=== PATIENT | female | born 1960 | race Caucasian/White ===

== ENCOUNTER → 2016-04-26 | Day surgery (SDC) | payer OTHER ==
[~2016-04-26] VITALS: Ht 154.9 cm; Wt 83.5 kg
[~2016-04-26] MED LIST: CALC500T49 PO; CODE30TA3 PO; KETOROLAC 60 MG/2 ML VIAL (J1885) As Ordered ONE; LIDOCAINE 1% MDV 20ML VIAL As Ordered ONE; LIDOCAINE 2% INJ 100 MG/5 ML SDV (FOR ANES.) As Ordered ONE; LR 1,000 ML IV SCH; METOCLOPRAMIDE INJ 10MG/2ML VIAL (J2765) As Ordered ONE; MIDAZOLAM INJ 2 MG/2 ML VIAL (J2250) As Ordered ONE; MULT1TAB10 PO; ONDANSETRON 4MG/2ML VIAL (J2405) As Ordered ONE; ONDANSETRON 4MG/2ML VIAL (J2405) IV PRN; PROPOFOL 200 MG/20 ML VIAL As Ordered ONE; ROCURONIUM BROMIDE 50 MG/5 ML VIAL As Ordered ONE; SUCCINYLCHOLINE 100 MG/5 ML SYRINGE (J0330) As Ordered ONE; VITA100037 PO; VITA500T3 PO; ZYRT10CA PO; fentaNYL 100 MCG/2 ML INJECTION (J3010) As Ordered ONE; fentaNYL 100 MCG/2 ML INJECTION (J3010) IV PRN
[2016-04-26 09:25] LABS: MEAN CORPUSCULAR HEMOGLOBIN 28.1 pg (27.0-33.0); MEAN CORPUSCULAR HGB CONC 32.3 g/dl (32.0-36.5); MEAN CORPUSCULAR VOLUME 87.1 fl (80.0-96.0); RED CELL DISTRIBUTION WIDTH 12.5 % (11.5-14.5)
[2016-04-26 09:33] LABS: ANION GAP 6 MEQ/L (8-16); BLOOD UREA NITROGEN 22 MG/DL (7-18); CALCIUM LEVEL 9.4 MG/DL (8.5-10.1); CARBON DIOXIDE LEVEL 31 MEQ/L (21-32); CHLORIDE LEVEL 103 MEQ/L (98-107); CREATININE FOR GFR 0.86 MG/DL (0.55-1.02); GLOMERULAR FILTRATION RATE > 60.0 (>51); GLUCOSE, FASTING 94 MG/DL (70-105); POTASSIUM SERUM 4.7 MEQ/L (3.5-5.1); SODIUM LEVEL 140 MEQ/L (136-145)
[2016-04-26 13:15] VITALS: BP 155/79
--- NOTE | 2016-04-27 12:39 | RO ---
DATE OF PROCEDURE: 04/26/2016 PREOPERATIVE DIAGNOSIS: Postmenopausal bleeding. POSTOPERATIVE DIAGNOSES: 1. Postmenopausal bleeding. 2. Endometrial polyps. PROCEDURE: Operative hysteroscopy, polypectomy, and dilation and curettage (D and C). SURGEON: Hesham Oglesby DO STEAM POWER PLANT OPERATOR: None. ANESTHESIA TYPE: General via laryngeal mask airway (LMA) anesthesia. SPECIMENS SENT TO PATHOLOGY: 1. Fragments of endometrial polyps. 2. Endometrial curettings. ESTIMATED BLOOD LOSS: 5 mL. FLUIDS REPLACED: 1100 mL lactated Ringer. DRAINS: In-and-out catheter, 20 mL urine output. COMPLICATIONS: None. PREOPERATIVE ANTIBIOTICS: None indicated. INTRAOPERATIVE FINDINGS: Left and right endometrial polyps, both near the ostium of the fallopian tube, each approximately less than 1 cm in greatest dimension. Both of these polyps were removed in fragments by twisting off the fragments with polyp graspers. DESCRIPTION OF PROCEDURE: The patient was counseled and consented on the risks, benefits, indications, and alternatives of the procedure. Informed consent was obtained. She was taken to the operating room with an IV running and placed on the operating table in the dorsal supine position. General anesthesia was administered and secured without any difficulty. She was placed in the high lithotomy position. She was prepared and draped in the normal sterile fashion. A time-out was performed per protocol. The sterile catheter was placed to drain the bladder. This was removed. The sterile speculum was placed with great visualization of the cervix. The anterior lip of the cervix was grasped with a single-tooth tenaculum, and downward traction was applied. The cervix was then sequentially dilated with Aubrey dilators up to a #18 without any difficulty. The uterus sounded to 8 cm. The hysteroscope was placed transcervically into the intrauterine cavity. Instillation of normal saline revealed two endometrial polyps. The largest was on the patient's left side and was right near the tubal ostium. This polypoid mass was grasped with hysteroscopic polyp graspers; and in fragments, this mass was removed. The fragments of polyp were sent to pathology for permanent section. In similar fashion, the polyp on the right side was grasped and twisted and removed in fragments with the hysteroscopic polyp graspers. The sites of the polypectomy were noted to be hemostatic. The hysteroscope was removed. A sharp curette was placed transcervically into the intrauterine cavity. A sharp curettage was performed throughout the intrauterine cavity and with minimal tissue return, which was consistent with the overall atrophic appearance of the endometrium. Other than the polyps, no fronds of tissue were visualized. Furnace Tender images were placed in the chart. The curettings were sent to pathology. The curette was removed. The hysteroscope was placed transcervically into the intrauterine cavity for one additional inspection. Excellent hemostasis throughout the cavity was noted. The polyps were noted to be completely removed, and the hysteroscope was removed. The single-tooth tenaculum was removed, as well. The cervical puncture sites from the tenaculum were noted to be hemostatic. All the instruments were removed from the vagina. Sponge, lap, needle, and instrument counts were correct. The patient tolerated the entire procedure very well. She was transferred to the postanesthesia care unit (PACU) in good stable condition. KALYANI
== END | disposition home or self-care (01) ==
LOC: M SDC 08:42
PROVIDERS: ATTEND Obstetrics & Gynecology
DX: N95.0 Postmenopausal bleeding (principal); N84.0 Polyp of corpus uteri; Z98.84 Bariatric surgery status; Z91.013 Allergy to seafood
CPT/HCPCS: 36415; 58558; 80048; 85027; 86850; 86900; 86901; 88305; J0330; J1885; J2250; J2405; J2765; J3010

== ENCOUNTER → 2016-10-04 | Outpatient (REF) | payer OTHER ==
[~2016-10-04] MED LIST changes: -KETOROLAC 60 MG/2 ML VIAL (J1885) As Ordered ONE; -LIDOCAINE 1% MDV 20ML VIAL As Ordered ONE; -LIDOCAINE 2% INJ 100 MG/5 ML SDV (FOR ANES.) As Ordered ONE; -LR 1,000 ML IV SCH; -METOCLOPRAMIDE INJ 10MG/2ML VIAL (J2765) As Ordered ONE; -MIDAZOLAM INJ 2 MG/2 ML VIAL (J2250) As Ordered ONE; -ONDANSETRON 4MG/2ML VIAL (J2405) As Ordered ONE; -ONDANSETRON 4MG/2ML VIAL (J2405) IV PRN; -PROPOFOL 200 MG/20 ML VIAL As Ordered ONE; -ROCURONIUM BROMIDE 50 MG/5 ML VIAL As Ordered ONE; -SUCCINYLCHOLINE 100 MG/5 ML SYRINGE (J0330) As Ordered ONE; -VITA100037 PO; +VITA100067 PO; -fentaNYL 100 MCG/2 ML INJECTION (J3010) As Ordered ONE; -fentaNYL 100 MCG/2 ML INJECTION (J3010) IV PRN
[2016-10-04 14:42] LABS: CHOLESTEROL LEVEL 213 MG/DL (<200); TRIGLYCERIDES LEVEL 85 MG/DL (<150)
== END ==
LOC: M LABDRWAD 13:40
PROVIDERS: ATTEND Family Medicine
DX: Z00.00 Encounter for general adult medical examination without abnormal findings (principal); Z13.818 Encounter for screening for other digestive system disorders

== ENCOUNTER → 2017-03-24 | Outpatient (CLI) | payer OTHER | LOC: M WHC 13:27 | DX: Z12.31 Encounter for screening mammogram for malignant neoplasm of breast (principal) | CPT/HCPCS: 77067 ==

== ENCOUNTER → 2017-07-26 | Outpatient (CLI) | payer OTHER ==
[2017-07-26 16:49] LABS: BASO % 0.4 % (0.0-1.0); EOS # 0.2 10^3/uL (0.0-0.50); EOS % 2.6 % (0.0-3.0); HEMATOCRIT 39.6 % (36.0-47.0); HEMOGLOBIN 12.4 g/dl (12.0-15.5); IMMATURE GRANULOCYTE % 0.2 % (0-3.0); LYMPH # 3.6 10^3/uL (1.5-4.5); LYMPH % 38.9 % (24.0-44.0); MEAN CORPUSCULAR HEMOGLOBIN 27.8 pg (27.0-33.0); MEAN CORPUSCULAR HGB CONC 31.3 g/dl (32.0-36.5); MEAN CORPUSCULAR VOLUME 88.8 fl (80.0-96.0); MONO # 0.8 10^3/uL (0.0-0.8); NEUTROPHILS # 4.5 10^3/uL (1.8-7.7); NEUTROPHILS % 48.9 % (36.0-66.0); PLATELET COUNT, AUTOMATED 378 10^3/uL (150-450); RED BLOOD COUNT 4.46 10^6/uL (4.00-5.40); RED CELL DISTRIBUTION WIDTH 14.2 % (11.5-14.5); WHITE BLOOD COUNT 9.2 10^3/uL (4.0-10.0)
== END ==
LOC: M ADAMS 09:19
DX: J20.9 Acute bronchitis, unspecified (principal)
CPT/HCPCS: 85025

== ENCOUNTER → 2017-09-18 | Outpatient (CLI) | payer OTHER ==
[2017-09-18 12:50] LABS: BASO # 0.1 10^3/uL (0.0-0.2); BASO % 0.8 % (0.0-1.0); EOS # 0.3 10^3/uL (0.0-0.50); EOS % 4.2 % (0.0-3.0); HEMATOCRIT 39.8 % (36.0-47.0); HEMOGLOBIN 12.9 g/dl (12.0-15.5); IMMATURE GRANULOCYTE % 0.1 % (0-3.0); LYMPH # 2.8 10^3/uL (1.5-4.5); LYMPH % 35.8 % (24.0-44.0); MEAN CORPUSCULAR HGB CONC 32.4 g/dl (32.0-36.5); MEAN CORPUSCULAR VOLUME 86.3 fl (80.0-96.0); MONO # 0.7 10^3/uL (0.0-0.8); MONO % 8.9 % (0.0-5.0); NEUTROPHILS # 3.9 10^3/uL (1.8-7.7); NEUTROPHILS % 50.2 % (36.0-66.0); PLATELET COUNT, AUTOMATED 322 10^3/uL (150-450); RED BLOOD COUNT 4.61 10^6/uL (4.00-5.40); RED CELL DISTRIBUTION WIDTH 12.7 % (11.5-14.5); WHITE BLOOD COUNT 7.8 10^3/uL (4.0-10.0)
[2017-09-18 12:56] LABS: TOTAL 25(OH) VITAMIN D 28.7 NG/ML (30.0-100.0)
[2017-09-18 12:57] LABS: FOLATE > 24.0 NG/ML; VITAMIN B12 LEVEL 974 PG/ML
[2017-09-18 13:05] LABS: ALBUMIN 3.8 GM/DL (3.2-5.2); ALBUMIN/GLOBULIN RATIO 1.06 (1.00-1.93); ALKALINE PHOSPHATASE 90 U/L (45-117); ALT/SGPT 23 U/L (12-78); ANION GAP 7 MEQ/L (8-16); AST/SGOT 16 U/L (7-37); BILIRUBIN,TOTAL 0.4 MG/DL (0.2-1.0); BLOOD UREA NITROGEN 18 MG/DL (7-18); CALCIUM LEVEL 9.1 MG/DL (8.5-10.1); CARBON DIOXIDE LEVEL 29 MEQ/L (21-32); CHLORIDE LEVEL 105 MEQ/L (98-107); CHOLESTEROL LEVEL 182 MG/DL (<200); CHOLESTEROL RISK RATIO 2.219 (<5); CREATININE FOR GFR 0.75 MG/DL (0.55-1.30); FERRITIN 27 NG/ML (8-252); GLOMERULAR FILTRATION RATE > 60.0 (>51); GLUCOSE, FASTING 84 MG/DL (70-100); HDL CHOLESTEROL 82 MG/DL (>40); IRON (FE) 104 UG/DL (50-170); NON-HDL-C 100 MG/DL; PERCENT SATURATION 31.4 % (13.2-45.0); POTASSIUM SERUM 4.9 MEQ/L (3.5-5.1); SODIUM LEVEL 141 MEQ/L (136-145); TOTAL IRON BINDING CAPACITY 331 UG/DL (250-450); TOTAL PROTEIN 7.4 GM/DL (6.4-8.2); TRIGLYCERIDES LEVEL 130 MG/DL (<150)
== END ==
LOC: M ADAMS 08:43
DX: Z98.84 Bariatric surgery status (principal)
CPT/HCPCS: 82746

== ENCOUNTER → 2018-06-23 | Outpatient (REF) | payer OTHER ==
[~2018-06-23] MED LIST changes: +ACET300T47 PO; -CODE30TA3 PO
== END ==
LOC: M SFHCWAGY 09:30
PROVIDERS: ATTEND Nurse Practitioner Family
DX: Z12.4 Encounter for screening for malignant neoplasm of cervix (principal)

== ENCOUNTER → 2018-06-23 | Outpatient (CLI) | payer OTHER ==
--- NOTE | 2018-06-23 11:39 | REPMRS ---
Patient History The patient states she had a clinical breast exam in 06/2018. Patient is postmenopausal. No known family history of cancer. Benign stereotatic breast biopsy of the right breast, 2001. No Hormone Replacement Therapy Digital Woman Screen Mammo: June 23, 2018 - Exam #: [id number] Bilateral CC and MLO view(s) were taken. Technologist: Lindsay Lauren, Technologist Prior study comparison: March 24, 2017, digital woman screen mammo performed at [facility]. January 19, 2016, digital woman screen mammo performed at [facility]. December 19, 2014, digital woman screen mammo performed at [facility]. FINDINGS: There are scattered fibroglandular densities. There has been no change in the appearance of the mammogram from the prior studies. There is a mild amount of scattered fibroglandular density which is fairly symmetric. There is no interval development of dominant mass, architectural distortion, or clustered microcalcification suggestive of malignancy. 3-D tomosynthesis shows no additional findings. Assessment: BI-RADS/ACR category 2 mammogram. Benign Findings. Recommendation Routine screening mammogram of both breasts in 1 year (for women over age 40). This patient's Lifetime Breast Cancer RIsk is estimated at 8.1 %. This mammogram was interpreted with the aid of an FDA-approved computer-aided dectection system. Electronically Signed By: Bsasem Gan MD 06/23/18 [id number]
== END ==
LOC: M WHC 09:39
PROVIDERS: ATTEND Nurse Practitioner Family
DX: Z12.31 Encounter for screening mammogram for malignant neoplasm of breast (principal); Z78.0 Asymptomatic menopausal state

== ENCOUNTER → 2018-12-07 | Outpatient (CLI) | payer OTHER ==
[~2018-12-07] MED LIST changes: +CYAN500T8 PO; -VITA500T3 PO
--- NOTE | 2018-12-07 18:04 | REP ---
Left forearm two views : There is no fracture or dislocation. Mineralization and joint spaces are normal. There are no calcifications or foreign bodies. Impression: Negative left forearm . Electronically Signed by Gustavo Morataya MD 12/07/2018 05:55 P
--- NOTE | 2018-12-07 18:04 | REP ---
Left elbow for views : There is no fracture or dislocation. Mineralization and joint spaces are normal. There are no calcifications or foreign bodies. Impression: Negative left elbow . Electronically Signed by Gustavo Morataya MD 12/07/2018 05:54 P
== END ==
LOC: M ADAMS 16:08
PROVIDERS: ATTEND Nurse Practitioner Family
DX: M79.632 Pain in left forearm (principal)

== ENCOUNTER 2018-12-22 09:34 | Emergency (ER) | payer OTHER ==
[~2018-12-22] VITALS: Ht 154.9 cm; Wt 101.9 kg
[2018-12-22] MEDS ORDERED: CYCL5TAB PO (09:45)
[2018-12-22] MEDS ORDERED: SUMA50TA2 PO (09:45)
[2018-12-22] MEDS ORDERED: SERT50TA29 PO (09:45)
[2018-12-22] MEDS ORDERED: NS 1,000 ML IV ONE (11:00)
[2018-12-22] MEDS ORDERED: KETOROLAC 30 MG/ML VIAL (J1885) IV ONE (11:00)
[2018-12-22] MEDS ORDERED: diphenhydrAMINE INJ 50MG/ML VIAL (J1200) IV ONE (11:00)
[2018-12-22 11:46] LABS: HEMATOCRIT 39.5 % (36.0-47.0); HEMOGLOBIN 12.6 g/dl (12.0-15.5); MEAN CORPUSCULAR HEMOGLOBIN 27.9 pg (27.0-33.0); MEAN CORPUSCULAR HGB CONC 31.9 g/dl (32.0-36.5); MEAN CORPUSCULAR VOLUME 87.4 fl (80.0-96.0); PLATELET COUNT, AUTOMATED 335 10^3/uL (150-450); RED BLOOD COUNT 4.52 10^6/uL (4.00-5.40)
[2018-12-22 12:06] LABS: ERYTHROCYTE SEDIMENTATION RATE 44 mm/hr (0-30)
[2018-12-22] MEDS ORDERED: ISOVUE-370 76% 100ML VIAL (Q9967) As Ordered ONE (12:11)
--- NOTE | 2018-12-22 12:53 | REP ---
CT face: 1018. Indication: Facial swelling. Comparison: None. Technique: Axial images of the face were obtained following IV administration of 75 ml Isovue 370. Coronal and sagittal reconstructions were provided. There is minimal stranding within the adipose tissue of the right face without focal fluid collection. The platysmas muscle with normal thickness. Very minimal mucosal thickening is present within the ethmoid air cells and maxillary sinuses as well as the inferior left frontal sinus. No air-fluid levels are present within the sinuses. Mastoid air cells are clear. No ocular or intraorbital abnormalities are present. Multiple dental caries are noted. There are no areas of pathologic IV contrast enhancement. No significant lymphadenopathy is detected. Impression: Minimal right facial cellulitis without abscess. Electronically Signed by Brando Rodriguez DO 12/22/2018 12:44 P
[2018-12-22] MEDS ORDERED: dexameTHASONE 20 MG/5 ML VIAL (J1100) IV ONE (13:00)
[2018-12-22] MEDS ORDERED: KEFL500C17 PO (13:40)
[2018-12-22] MEDS ORDERED: PRED20TA PO (13:40)
[2018-12-22 14:25] VITALS: BP 146/82
== END 2018-12-22 14:28 | disposition home or self-care (01) ==
LOC: M ED 09:34
DX: L03.211 Cellulitis of face (principal); R51 Headache; R05 Cough; M79.602 Pain in left arm; Z86.69 Personal history of other diseases of the nervous system and sense organs; Z98.84 Bariatric surgery status
CPT/HCPCS: 70487; 80047; 85027; 85652; 86140; 99284; J1100; J1200; J1885; Q9967

== ENCOUNTER → 2018-12-24 | Outpatient (CLI) | payer OTHER ==
[~2018-12-24] MED LIST changes: +CYCL5TAB PO; +KEFL500C17 PO; +PRED20TA PO; +SERT50TA29 PO; +SUMA50TA2 PO
--- NOTE | 2018-12-25 04:12 | REP ---
Clinical: Trauma. Contusion. Technique: AP, lateral, bilateral oblique views of the left third digit. Findings: No obvious acute fracture or dislocation. Mild soft tissue swelling suggested. No subcutaneous emphysema or foreign body. Impression: Mild swelling. No obvious acute fracture. Electronically Signed by Flo Chin MD 12/25/2018 04:03 A
== END ==
LOC: M ADAMS 17:21
PROVIDERS: ATTEND Physician Assistant
DX: S60.032A Contusion of left middle finger without damage to nail, initial encounter (principal); X58.XXXA Exposure to other specified factors, initial encounter; Y92.89 Other specified places as the place of occurrence of the external cause

== ENCOUNTER → 2019-03-06 | Outpatient (CLI) | payer OTHER ==
--- NOTE | 2019-03-06 13:02 | REP ---
Clinical: Nontraumatic left knee pain. Technique: AP, lateral, bilateral oblique and sunrise views of the left knee. Findings: Generalized age-related changes are appreciated. No acute fracture dislocation. No obvious effusion. No overt osteoarthritic findings. Lateral view suggest possible anterior swelling. Impression: Anterior swelling. Otherwise age appropriate examination. Electronically Signed by Flo Chin MD 03/06/2019 12:52 P
== END ==
LOC: M ADAMS 12:27
PROVIDERS: ATTEND Physician Assistant Medical
DX: M25.562 Pain in left knee (principal)

== ENCOUNTER → 2019-08-11 | Outpatient (REF) | payer OTHER ==
[2019-08-11 13:15] LABS: HEMATOCRIT 41.1 % (36.0-47.0); HEMOGLOBIN 13.3 g/dl (12.0-15.5); MEAN CORPUSCULAR HEMOGLOBIN 28.4 pg (27.0-33.0); MEAN CORPUSCULAR HGB CONC 32.4 g/dl (32.0-36.5); MEAN CORPUSCULAR VOLUME 87.8 fl (80.0-96.0); PLATELET COUNT, AUTOMATED 345 10^3/uL (150-450); RED BLOOD COUNT 4.68 10^6/uL (4.00-5.40); WHITE BLOOD COUNT 8.9 10^3/uL (4.0-10.0)
[2019-08-11 13:36] LABS: ALT/SGPT 34 U/L (12-78); BILIRUBIN,TOTAL 0.4 MG/DL (0.2-1.0); BLOOD UREA NITROGEN 17 MG/DL (7-18); CALCIUM LEVEL 9.6 MG/DL (8.5-10.1); CARBON DIOXIDE LEVEL 29 MEQ/L (21-32); CHLORIDE LEVEL 106 MEQ/L (98-107); CHOLESTEROL LEVEL 207 MG/DL (<200); CHOLESTEROL RISK RATIO 2.274 (<5); CREATININE FOR GFR 0.78 MG/DL (0.55-1.30); GLOMERULAR FILTRATION RATE > 60.0 (>51); GLUCOSE, FASTING 85 MG/DL (70-100); HDL CHOLESTEROL 91 MG/DL (>40); LDL CHOLESTEROL 97 MG/DL (<100); NON-HDL-C 116 MG/DL; POTASSIUM SERUM 5.4 MEQ/L (3.5-5.1); SODIUM LEVEL 141 MEQ/L (136-145); TOTAL PROTEIN 7.4 GM/DL (6.4-8.2); TRIGLYCERIDES LEVEL 94 MG/DL (<150)
== END ==
LOC: M LABDRWAD 12:25
PROVIDERS: ATTEND Family Medicine
DX: I10 Essential (primary) hypertension (principal)

== ENCOUNTER → 2019-09-13 | Outpatient (CLI) | payer OTHER ==
--- NOTE | 2019-09-13 10:10 | REPMRS ---
Patient History The patient states she had a clinical breast exam in September 2019.No known family history of cancer. Benign stereotatic breast biopsy of the right breast, 2001. No Hormone Replacement Therapy 3D TOMOSYNTHESIS WAS PERFORMED. [facility] for [facility] cancer [facility] 7.8%. VOLPARA DENSITY B. Digital Woman Screen Mammo: September 13, 2019 - Exam #: [id number] Bilateral CC and MLO view(s) were taken. Technologist: Vandana Fernandez, Technologist Prior study comparison: June 23, 2018, bilateral digital woman screen mammo performed at [facility]. March 24, 2017, digital woman screen mammo performed at [facility]. FINDINGS: There are scattered fibroglandular densities. There has been no change in the appearance of the mammogram from the prior studies. There is a mild amount of residual fibroglandular tissue which is fairly symmetric. There is no interval development of dominant mass, architectural distortion, or clustered microcalcification suggestive of malignancy. Assessment: BI-RADS/ACR category 1 mammogram. Negative Mammogram. Recommendation Routine screening mammogram in 1 year (for women over age 40). This mammogram was interpreted with the aid of an FDA-approved computer-aided dectection system. Electronically Signed By: Gustavo Eldridge MD 09/13/19 [id number]
== END ==
LOC: M WHC 08:50
PROVIDERS: ATTEND Nurse Practitioner Family
DX: Z12.31 Encounter for screening mammogram for malignant neoplasm of breast (principal)

== ENCOUNTER 2019-11-14 07:42 | Emergency (ER) | payer OTHER ==
[~2019-11-14] VITALS: Ht 154.9 cm; Wt 98.6 kg
[2019-11-14] MEDS ORDERED: ASPIRIN 81 MG CHEW TABLET PO ONE (08:15)
[2019-11-14] MEDS ORDERED: GI COCKTAIL 50ML BTL(HYOSCYAMINE/MAALOX/LIDOCAINE VISCOUS)(1:3:1) PO ONE (08:15)
[2019-11-14] MEDS ORDERED: ISOVUE-370 76% 100ML VIAL As Ordered ONE (08:17)
[2019-11-14 08:21] LABS: BASO # 0.1 10^3/uL (0.0-0.2); BASO % 0.7 % (0.0-1.0); EOS # 0.4 10^3/uL (0.0-0.5); EOS % 4.7 % (0.0-3.0); HEMATOCRIT 37.2 % (36.0-47.0); HEMOGLOBIN 11.9 g/dl (12.0-15.5); LYMPH # 3.4 10^3/uL (1.5-5.0); LYMPH % 39.7 % (24.0-44.0); MEAN CORPUSCULAR HEMOGLOBIN 28.1 pg (27.0-33.0); MEAN CORPUSCULAR VOLUME 87.7 fl (80.0-96.0); MONO # 0.7 10^3/uL (0.0-0.8); MONO % 7.7 % (0.0-5.0); PLATELET COUNT, AUTOMATED 299 10^3/uL (150-450); RED BLOOD COUNT 4.24 10^6/uL (4.00-5.40); WHITE BLOOD COUNT 8.5 10^3/uL (4.0-10.0)
[2019-11-14] MEDS ORDERED: MORPHINE 2 MG/ML 1ML VIAL (J2270) IV PRN (08:30)
[2019-11-14] MEDS ORDERED: ONDANSETRON 4MG/2ML VIAL IV ONE (08:30)
[2019-11-14 08:32] LABS: INR 0.91; PROTHROMBIN TIME 12.5 SECONDS (11.8-14.0)
[2019-11-14 08:33] LABS: PARTIAL THROMBOPLASTIN TIME 21.8 SECONDS (25.0-38.4)
--- NOTE | 2019-11-14 08:43 | REPVR ---
PROCEDURE INFORMATION: Exam: CT Angiography Chest With Contrast Exam date and time: 11/14/2019 8:23 AM Age: 59 years old Clinical indication: Chest pain; Type not specified TECHNIQUE: Imaging protocol: Computed tomographic angiography of the chest with intravenous contrast. 3D rendering (Not supervised by radiologist): MIP and/or 3D reconstructed images were created by the technologist. Radiation optimization: All CT scans at this facility use at least one of these dose optimization techniques: automated exposure control; mA and/or kV adjustment per patient size (includes targeted exams where dose is matched to clinical indication); or iterative reconstruction. Contrast material: ISOVUE 370; Contrast volume: 75 ml; Contrast route: INTRAVENOUS (IV); COMPARISON: CR PORTABLE CHEST X-RAY 11/14/2019 8:01 AM FINDINGS: Pulmonary arteries: The pulmonary arteries are adequately opacified. No evidence of pulmonary embolism in the main, central, lobar or segmental pulmonary arteries. Aorta: Unremarkable. No aortic aneurysm. No aortic dissection. Lungs: No acute infiltrate or consolidation is seen. Pleural space: No pneumothorax. No pleural effusion. Heart: No cardiomegaly. No pericardial effusion. Lymph nodes: No enlarged lymph nodes. Gallbladder and bile ducts: Cholecystectomy. Stomach and bowel: Stable changes of gastric bypass surgery.There is no evidence for intestinal obstruction. Bones/joints: The thoracic spine demonstrates mild degenerative changes at multiple levels. Soft tissues: Unremarkable. IMPRESSION: 1. The pulmonary arteries are adequately opacified. No evidence of pulmonary embolism in the main, central, lobar or segmental pulmonary arteries. 2. No acute infiltrate or consolidation is seen. Electronically signed by: Josesito Pool On 11/14/2019 08:43:51 AM
[2019-11-14 08:49] LABS: ALBUMIN 3.7 GM/DL (3.2-5.2); BILIRUBIN,DIRECT 0.1 MG/DL (0.0-0.2); BILIRUBIN,TOTAL 0.4 MG/DL (0.2-1.0); FREE T4 1.08 NG/DL (0.76-1.46); THYROID STIMULATING HORMONE 2.02 uIU/ML (0.358-3.740); TOTAL PROTEIN 7.7 GM/DL (6.4-8.2)
--- NOTE | 2019-11-14 09:11 | REPVR ---
PROCEDURE INFORMATION: Exam: XR Chest, 1 View Exam date and time: 11/14/2019 8:12 AM Age: 59 years old Clinical indication: Other: Cp; Additional info: Chest pain TECHNIQUE: Imaging protocol: XR of the chest Views: 1 view. COMPARISON: DX CHEST 2 VIEW 07/26/2017 9:18 AM FINDINGS: Lungs: No acute infiltrate is seen. Pleural space: No pneumothorax or pleural effusion is seen. Heart/Mediastinum: No cardiomegaly. Bones/joints: The visualized osseous structures are unremarkable. No acute fracture or dislocation is seen. IMPRESSION: No acute infiltrate, pneumothorax or pleural effusion is seen. Electronically signed by: Josesito Pool On 11/14/2019 09:10:58 AM
[2019-11-14 12:59] VITALS: BP 139/65
--- NOTE | 2019-11-22 10:19 | ECGEPIP ---
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
--- NOTE | 2019-11-22 11:27 | ECGEPIP ---
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
== END 2019-11-14 13:33 | disposition home or self-care (01) ==
LOC: M ED 07:42
DX: R07.9 Chest pain, unspecified (principal); R06.00 Dyspnea, unspecified; Z98.84 Bariatric surgery status; Z79.899 Other long term (current) drug therapy; Z91.018 Allergy to other foods; Z87.891 Personal history of nicotine dependence
CPT/HCPCS: 71045; 71275; 80047; 80076; 83690; 84439; 84443; 84484; 85025; 85610; 85730; 87486; 87581; 87633; 87798; 93005; 93041; 94760; 96374; 96375; 99284; J2270; J2405; Q9967

== ENCOUNTER → 2020-02-15 | Outpatient (CLI) | payer SELFPAY ==
[~2020-02-15] MED LIST changes: +CYAN500T14 PO; -CYAN500T8 PO
== END ==
LOC: M LABSMTC 17:23
PROVIDERS: ATTEND Pediatrics
DX: Z11.59 Encounter for screening for other viral diseases (principal)

== ENCOUNTER → 2020-06-23 | Outpatient (CLI) | payer OTHER ==
--- NOTE | 2020-06-23 16:41 | REP ---
INDICATION: NON TOXIC SINGLE THYROID NODULE. COMPARISON: 09/17/2019. TECHNIQUE: Real-time sonographic evaluation of thyroid performed. FINDINGS: Right lobe measures 4.1 x 1.3 x 1.6 cm and left lobe 5.1 x 1.4 x 1.7 cm. Predominantly cystic 3 mm nodule is seen in the left upper pole with mild soft tissue thickening of the wall. Two tiny 1-2 mm cystic structures are seen in the mid left thyroid lobe. No other cystic or solid nodule is seen. IMPRESSION: Three tiny cystic structures left lobe of thyroid measuring up to 3 mm in maximum diameter, essentially unchanged since prior exam and not felt to be clinically significant. <Electronically signed by Gustavo Eldridge > 06/23/20 [id number]
== END ==
LOC: M RAD 15:53
PROVIDERS: ATTEND Family Medicine
DX: E04.2 Nontoxic multinodular goiter (principal)

== ENCOUNTER → 2020-09-19 | Outpatient (CLI) | payer OTHER | LOC: M WHC 09:25 | PROVIDERS: ATTEND Nurse Practitioner Women's Health | DX: Z12.31 Encounter for screening mammogram for malignant neoplasm of breast (principal) ==

== ENCOUNTER → 2020-09-19 | Outpatient (REF) | payer OTHER | LOC: M SFHCWAGY 13:14 | PROVIDERS: ATTEND Nurse Practitioner Women's Health | DX: Z12.4 Encounter for screening for malignant neoplasm of cervix (principal); Z01.419 Encounter for gynecological examination (general) (routine) without abnormal findings ==

== ENCOUNTER → 2020-11-19 | Outpatient (CLI) | payer OTHER ==
[2020-11-19 11:16] LABS: HEMATOCRIT 40.7 % (36.0-47.0); MEAN CORPUSCULAR HEMOGLOBIN 28.4 pg (27.0-33.0); MEAN CORPUSCULAR HGB CONC 31.9 g/dl (32.0-36.5); MEAN CORPUSCULAR VOLUME 88.9 fl (80.0-96.0); PLATELET COUNT, AUTOMATED 364 10^3/uL (150-450); RED BLOOD COUNT 4.58 10^6/uL (4.00-5.40); WHITE BLOOD COUNT 9.3 10^3/uL (4.0-10.0)
[2020-11-19 11:46] LABS: ALBUMIN 3.7 GM/DL (3.2-5.2); ALT/SGPT 24 U/L (12-78); BILIRUBIN,TOTAL 0.3 MG/DL (0.2-1.0); BLOOD UREA NITROGEN 25 MG/DL (7-18); CALCIUM LEVEL 9.2 MG/DL (8.5-10.1); CARBON DIOXIDE LEVEL 30 MEQ/L (21-32); CHLORIDE LEVEL 106 MEQ/L (98-107); CREATININE FOR GFR 0.78 MG/DL (0.55-1.30); GLOMERULAR FILTRATION RATE > 60.0 (>51); GLUCOSE, FASTING 83 MG/DL (70-100); POTASSIUM SERUM 4.6 MEQ/L (3.5-5.1); SODIUM LEVEL 139 MEQ/L (136-145); TOTAL PROTEIN 7.4 GM/DL (6.4-8.2)
--- NOTE | 2020-11-19 14:39 | ECGEPIP ---
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 Electronically Signed on 11-19-2020 14:38:47 EDT by Remberto Tsang
== END ==
LOC: M LAB 10:56
PROVIDERS: ATTEND Family Medicine
DX: Z01.812 Encounter for preprocedural laboratory examination (principal)

== ENCOUNTER 2021-05-23 11:02 | Emergency (ER) | payer OTHER ==
[~2021-05-23] VITALS: Ht 154.9 cm; Wt 97.7 kg
[2021-05-23 11:16] VITALS: BP 188/82
== END 2021-05-23 14:42 | disposition left against medical advice (07) ==
LOC: M ED 11:02
DX: Z53.21 Procedure and treatment not carried out due to patient leaving prior to being seen by health care provider (principal)

== ENCOUNTER → 2021-05-26 | Outpatient (REF) | payer OTHER ==
[~2021-05-26] MED LIST changes: +ONDA4TAB6
== END ==
LOC: M WUC 18:28
PROVIDERS: ATTEND Physician Assistant
DX: R10.816 Epigastric abdominal tenderness (principal)

== ENCOUNTER → 2021-05-26 | Outpatient (CLI) | payer OTHER ==
[2021-05-26 10:55] LABS: BASO # 0.1 10^3/uL (0.0-0.2); BASO % 0.6 % (0.0-1.0); EOS # 0.3 10^3/uL (0.0-0.5); EOS % 3.4 % (0.0-3.0); HEMATOCRIT 41.7 % (36.0-47.0); HEMOGLOBIN 13.4 g/dl (12.0-15.5); LYMPH # 3.4 10^3/uL (1.5-5.0); LYMPH % 33.9 % (24.0-44.0); MEAN CORPUSCULAR HEMOGLOBIN 27.6 pg (27.0-33.0); MEAN CORPUSCULAR HGB CONC 32.1 g/dl (32.0-36.5); MONO # 0.7 10^3/uL (0.0-0.8); MONO % 7.1 % (2.0-8.0); NEUTROPHILS # 5.4 10^3/uL (1.5-8.5); NEUTROPHILS % 54.7 % (36.0-66.0); PLATELET COUNT, AUTOMATED 347 10^3/uL (150-450); RED BLOOD COUNT 4.85 10^6/uL (4.00-5.40)
[2021-05-26 11:16] LABS: ALBUMIN 3.7 GM/DL (3.2-5.2); ALT/SGPT 24 U/L (12-78); AMYLASE 47 U/L (25-115); BILIRUBIN,TOTAL 0.3 MG/DL (0.2-1.0); BLOOD UREA NITROGEN 22 MG/DL (7-18); CALCIUM LEVEL 9.4 MG/DL (8.8-10.2); CARBON DIOXIDE LEVEL 32 MEQ/L (21-32); CHLORIDE LEVEL 103 MEQ/L (98-107); GLOMERULAR FILTRATION RATE > 60.0 (>45); GLUCOSE, FASTING 85 MG/DL (70-100); LIPASE 139 U/L (73-393); POTASSIUM SERUM 4.5 MEQ/L (3.5-5.1); SODIUM LEVEL 139 MEQ/L (136-145); TOTAL PROTEIN 7.6 GM/DL (6.4-8.2)
== END ==
LOC: M RAD 09:55
PROVIDERS: ATTEND Physician Assistant
DX: R10.13 Epigastric pain (principal)

== ENCOUNTER 2021-05-28 16:03 | Emergency (ER) | payer OTHER ==
[~2021-05-28] VITALS: Ht 154.9 cm; Wt 100.4 kg
[~2021-05-28 16:03] MED LIST changes: -ONDA4TAB6
[2021-05-28] MEDS ORDERED: ONDA4TAB6 (16:09)
[2021-05-28] MEDS ORDERED: NS 1,000 ML IV ONE (17:05)
[2021-05-28] MEDS ORDERED: KETOROLAC 30 MG/ML 1ML VIAL IV ONE (17:05)
[2021-05-28] MEDS ORDERED: ONDANSETRON 4MG/2ML VIAL IV ONE (17:05)
[2021-05-28 17:30] LABS: BASO # 0.1 10^3/uL (0.0-0.2); BASO % 0.5 % (0.0-1.0); EOS # 0.3 10^3/uL (0.0-0.5); EOS % 3.3 % (0.0-3.0); HEMATOCRIT 39.2 % (36.0-47.0); HEMOGLOBIN 12.6 g/dl (12.0-15.5); LYMPH # 4.3 10^3/uL (1.5-5.0); LYMPH % 43.6 % (24.0-44.0); MEAN CORPUSCULAR HEMOGLOBIN 27.4 pg (27.0-33.0); MEAN CORPUSCULAR HGB CONC 32.1 g/dl (32.0-36.5); MEAN CORPUSCULAR VOLUME 85.2 fl (80.0-96.0); MONO # 0.8 10^3/uL (0.0-0.8); MONO % 7.6 % (2.0-8.0); NEUTROPHILS # 4.4 10^3/uL (1.5-8.5); NEUTROPHILS % 44.8 % (36.0-66.0); PLATELET COUNT, AUTOMATED 334 10^3/uL (150-450); WHITE BLOOD COUNT 9.8 10^3/uL (4.0-10.0)
[2021-05-28] MEDS ORDERED: ISOVUE-370 76% 100ML VIAL As Ordered ONE (17:32)
[2021-05-28 17:49] LABS: ALBUMIN 3.6 GM/DL (3.2-5.2); ALT/SGPT 19 U/L (12-78); BILIRUBIN,DIRECT < 0.1 MG/DL (0.0-0.2); BILIRUBIN,TOTAL 0.2 MG/DL (0.2-1.0); BLOOD UREA NITROGEN 20 MG/DL (7-18); C REACTIVE PROTEIN QUANTITATIV 0.31 MG/DL (0.00-0.30); CALCIUM LEVEL 9.1 MG/DL (8.8-10.2); CARBON DIOXIDE LEVEL 30 MEQ/L (21-32); CHLORIDE LEVEL 108 MEQ/L (98-107); CREATININE FOR GFR 0.76 MG/DL (0.55-1.30); GLOMERULAR FILTRATION RATE > 60.0 (>45); GLUCOSE, FASTING 84 MG/DL (70-100); LIPASE 186 U/L (73-393); POTASSIUM SERUM 4.7 MEQ/L (3.5-5.1); SODIUM LEVEL 139 MEQ/L (136-145); TOTAL PROTEIN 7.1 GM/DL (6.4-8.2)
[2021-05-28 18:23] LABS: ERYTHROCYTE SEDIMENTATION RATE 35 mm/hr (0-30)
[2021-05-28 19:52] VITALS: BP 159/76
[2021-05-28] MEDS ORDERED: GLYCERIN ADULT SUPP PR ONE (19:55)
[2021-07-16] MEDS ORDERED: VITMTA PO (11:35)
[2021-07-16] MEDS ORDERED: VITA100093 PO (11:35)
== END 2021-05-28 20:09 | disposition home or self-care (01) ==
LOC: M ED 16:03
DX: K59.00 Constipation, unspecified (principal); Z98.84 Bariatric surgery status; M85.9 Disorder of bone density and structure, unspecified; D18.09 Hemangioma of other sites; Z79.899 Other long term (current) drug therapy; Z91.013 Allergy to seafood
CPT/HCPCS: 74177; 80048; 80076; 83690; 85025; 85652; 86140; 96361; 96374; 96375; 99284; J1885; J2405; Q9967

== ENCOUNTER → 2021-07-04 | Outpatient (CLI) | payer OTHER ==
[~2021-07-04] MED LIST changes: +ONDA4TAB6; +VITA100093 PO; +VITMTA PO
[2021-07-04 13:43] LABS: FREE T4 0.93 NG/DL (0.76-1.46); THYROID STIMULATING HORMONE 2.31 uIU/ML (0.358-3.740)
== END ==
LOC: M LAB 11:48
PROVIDERS: ATTEND Internal Medicine Gastroenterology
DX: E03.9 Hypothyroidism, unspecified (principal); R11.2 Nausea with vomiting, unspecified

== ENCOUNTER → 2021-07-14 | Outpatient (CLI) | payer OTHER | LOC: M LABSMTC 10:35 | PROVIDERS: ATTEND Anesthesiology | DX: Z01.812 Encounter for preprocedural laboratory examination (principal); Z20.822 Contact with and (suspected) exposure to COVID-19 ==

== ENCOUNTER 2021-07-19 10:46 | Day surgery (SDC) | payer OTHER ==
[~2021-07-19] VITALS: Ht 154.9 cm; Wt 100.7 kg
[~2021-07-19 10:46] MED LIST changes: +LIDOCAINE 2% 100MG/5ML SDV (FOR ANES.) As Ordered ONE; +NS 1,000 ML IV ONE; +propofoL 200 MG/20 ML VIAL As Ordered ONE
[2021-07-19] MEDS ORDERED: fentaNYL 100 MCG/2 ML INJECTION As Ordered ONE (13:01)
[2021-07-19] MEDS ORDERED: GLYCOPYRROLATE INJ 0.2 MG/ML 2 ML VIAL As Ordered ONE (13:50)
[2021-07-19] MEDS ORDERED: propofoL 200 MG/20 ML VIAL As Ordered ONE (13:50)
[2021-07-19] MEDS ORDERED: LIDOCAINE 2% 100MG/5ML SDV (FOR ANES.) As Ordered ONE (13:50)
[2021-07-19 14:12] VITALS: BP 141/76
== END 2021-07-19 14:21 | disposition home or self-care (01) ==
LOC: M OPP 10:46
PROVIDERS: ATTEND Internal Medicine Gastroenterology
DX: K63.5 Polyp of colon (principal); K64.8 Other hemorrhoids; R19.4 Change in bowel habit; Q43.8 Other specified congenital malformations of intestine; K20.90 Esophagitis, unspecified without bleeding; Z98.0 Intestinal bypass and anastomosis status; R11.2 Nausea with vomiting, unspecified; Z91.013 Allergy to seafood; Z79.899 Other long term (current) drug therapy
CPT/HCPCS: 43239; 45385; 88305; J3010

== ENCOUNTER → 2021-10-31 | Outpatient (CLI) | payer OTHER ==
[~2021-10-31] MED LIST changes: +B-12100010 PO; +CALC600T60 PO; +CENT1TAB PO; +IRON65TA2 PO; -LIDOCAINE 2% 100MG/5ML SDV (FOR ANES.) As Ordered ONE; -NS 1,000 ML IV ONE; +OMEP40CA5 PO; +VITA500054 PO; +ZOLO100T PO; +ZYRT10TA12 PO; +iron; -propofoL 200 MG/20 ML VIAL As Ordered ONE
== END ==
LOC: M LABSMTC 10:11
PROVIDERS: ATTEND Anesthesiology
DX: Z01.818 Encounter for other preprocedural examination (principal); Z11.52 Encounter for screening for COVID-19

== ENCOUNTER 2021-11-05 06:32 | Day surgery (SDC) | payer OTHER ==
[~2021-11-05] VITALS: Ht 154.9 cm; Wt 107.0 kg
[~2021-11-05 06:32] MED LIST changes: +NS 1,000 ML IV ONE
[2021-11-05] MEDS ORDERED: fentaNYL 100 MCG/2 ML INJECTION As Ordered ONE (07:40)
[2021-11-05] MEDS ORDERED: LIDOCAINE 2% 100MG/5ML SDV (FOR ANES.) As Ordered ONE (08:10)
[2021-11-05] MEDS ORDERED: propofoL 200 MG/20 ML VIAL As Ordered ONE (08:10)
[2021-11-05 08:15] VITALS: BP 169/82
== END 2021-11-05 08:26 | disposition home or self-care (01) ==
LOC: M OPP 06:32
PROVIDERS: ATTEND Internal Medicine Gastroenterology
DX: K22.89 Other specified disease of esophagus (principal); K28.9 Gastrojejunal ulcer, unspecified as acute or chronic, without hemorrhage or perforation; Z98.0 Intestinal bypass and anastomosis status; G43.909 Migraine, unspecified, not intractable, without status migrainosus; F41.9 Anxiety disorder, unspecified; F32.9 Major depressive disorder, single episode, unspecified; Z79.899 Other long term (current) drug therapy; Z90.721 Acquired absence of ovaries, unilateral
CPT/HCPCS: 43235; J3010

== ENCOUNTER → 2021-12-17 | Outpatient (CLI) | payer OTHER ==
[~2021-12-17] MED LIST changes: -NS 1,000 ML IV ONE
== END ==
LOC: M WHC 08:40
PROVIDERS: ATTEND Nurse Practitioner Family
DX: Z12.31 Encounter for screening mammogram for malignant neoplasm of breast (principal)

== ENCOUNTER → 2021-12-17 | Outpatient (REF) | payer OTHER | LOC: M SFHCWAGY 13:53 | PROVIDERS: ATTEND Nurse Practitioner Family | DX: Z12.4 Encounter for screening for malignant neoplasm of cervix (principal); Z77.9 Other contact with and (suspected) exposures hazardous to health; N95.2 Postmenopausal atrophic vaginitis | CPT/HCPCS: 87624; G0123 ==

== ENCOUNTER → 2022-03-06 | Outpatient (REF) | payer OTHER | LOC: M WUC 11:22 | PROVIDERS: ATTEND Physician Assistant | DX: J06.9 Acute upper respiratory infection, unspecified (principal) ==

== ENCOUNTER 2022-04-15 08:12 | Emergency (ER) | payer OTHER ==
[~2022-04-15] VITALS: Ht 154.9 cm; Wt 104.5 kg
[2022-04-15] MEDS ORDERED: NITROGLYCERIN 0.4MG SUBL TABLET SL PRN (08:50)
[2022-04-15 09:03] VITALS: BP 157/80
[2022-04-15 09:30] LABS: BASO # 0.1 10^3/uL (0.0-0.2); BASO % 0.6 % (0.0-1.0); EOS # 0.5 10^3/uL (0.0-0.5); EOS % 4.9 % (0.0-3.0); HEMATOCRIT 44.8 % (36.0-47.0); HEMOGLOBIN 14.2 g/dl (12.0-15.5); LIPASE 43 U/L (12-53); LYMPH # 3.7 10^3/uL (1.5-5.0); LYMPH % 35.1 % (24.0-44.0); MEAN CORPUSCULAR HEMOGLOBIN 27.4 pg (27.0-33.0); MEAN CORPUSCULAR HGB CONC 31.7 g/dl (32.0-36.5); MEAN CORPUSCULAR VOLUME 86.5 fl (80.0-96.0); MONO # 0.8 10^3/uL (0.0-0.8); MONO % 7.3 % (2.0-8.0); NEUTROPHILS # 5.4 10^3/uL (1.5-8.5); NEUTROPHILS % 51.9 % (36.0-66.0); PLATELET COUNT, AUTOMATED 395 10^3/uL (150-450); RED BLOOD COUNT 5.18 10^6/uL (4.00-5.40); WHITE BLOOD COUNT 10.5 10^3/uL (4.0-10.0)
[2022-04-15 09:31] LABS: CPK CREATINE PHOSPHOKINASE 40 U/L (34-145)
[2022-04-15 09:32] LABS: ALKALINE PHOSPHATASE 114 U/L (46-116); ALT/SGPT 19 U/L (7.0-40); AST/SGOT 24 U/L (<34); BILIRUBIN,DIRECT < 0.1 MG/DL (<0.4); BILIRUBIN,TOTAL 0.3 MG/DL (0.3-1.2); BLOOD UREA NITROGEN 18 MG/DL (9-23); CALCIUM LEVEL 10.3 MG/DL (8.3-10.6); CARBON DIOXIDE LEVEL 26 MMOL/L (20-31); CHLORIDE LEVEL 103 MMOL/L (98-107); CK-MB VALUE MASS < 1.0 NG/ML (<3.6); CREATININE FOR GFR 0.81 MG/DL (0.55-1.30); GLOMERULAR FILTRATION RATE > 60.0 (>45); GLUCOSE, FASTING 98 MG/DL (74-106); POTASSIUM SERUM 4.2 MMOL/L (3.5-5.1); SODIUM LEVEL 139 MMOL/L (136-145); TOTAL PROTEIN 7.9 G/DL (5.7-8.2)
[2022-04-15 09:57] LABS: RSV AMPLIFICATION NEGATIVE (NEGATIVE)
[2022-04-15 10:26] LABS: CPK CREATINE PHOSPHOKINASE 38 U/L (34-145)
[2022-04-15 10:27] LABS: CK-MB VALUE MASS < 1.0 NG/ML (<3.6); MB/CK RELATIVE INDEX 2.63 (< OR =4)
[2022-04-15] MEDS ORDERED: ISOVUE-370 76% 100ML VIAL As Ordered ONE (10:55)
[2022-04-15] MEDS ORDERED: GI COCKTAIL 50ML BTL(HYOSCYAMINE/MAALOX/LIDOCAINE VISCOUS)(1:3:1) PO ONE (11:35)
[2022-04-15] MEDS: GASTROGRAFIN SOLUTION 30ML PO SCH ×2 (11:45→11:46)
[2022-04-15] MEDS ORDERED: PROT1TAB2 PO (12:49)
[2022-04-15 13:45] VITALS: BP 152/71
== END 2022-04-15 13:53 | disposition home or self-care (01) ==
LOC: M ED 08:12
DX: K21.00 Gastro-esophageal reflux disease with esophagitis, without bleeding (principal); R00.1 Bradycardia, unspecified; F10.10 Alcohol abuse, uncomplicated; Z91.013 Allergy to seafood; Z98.84 Bariatric surgery status; Z79.83 Long term (current) use of bisphosphonates; Z79.52 Long term (current) use of systemic steroids; Z79.899 Other long term (current) drug therapy

== ENCOUNTER → 2022-05-08 | Outpatient (CLI) | payer OTHER ==
[~2022-05-08] MED LIST changes: +E-Z-GAS II EFFERVESCENT PACKET (SODIUM BICARB./CITRIC ACID/SIMETHICONE) As Ordered ONE; +E-Z-HD 98% w/w 340GM SUSP BTL As Ordered ONE; +E-Z-PAQUE 96% w/w SUSP 176GM BTL As Ordered ONE; +PROT1TAB2 PO
== END ==
LOC: M RAD 08:08
PROVIDERS: ATTEND Family Medicine
DX: R07.9 Chest pain, unspecified (principal); Z98.84 Bariatric surgery status; K21.9 Gastro-esophageal reflux disease without esophagitis

== ENCOUNTER → 2022-07-03 | Outpatient (REF) | payer OTHER ==
[~2022-07-03] MED LIST changes: -E-Z-GAS II EFFERVESCENT PACKET (SODIUM BICARB./CITRIC ACID/SIMETHICONE) As Ordered ONE; -E-Z-HD 98% w/w 340GM SUSP BTL As Ordered ONE; -E-Z-PAQUE 96% w/w SUSP 176GM BTL As Ordered ONE
== END ==
LOC: M LAB REF 20:16
PROVIDERS: ATTEND Nurse Practitioner Family
DX: J02.9 Acute pharyngitis, unspecified (principal)

== ENCOUNTER → 2022-10-14 | Outpatient (CLI) | payer OTHER ==
[2022-10-14 08:58] LABS: BASO # 0.1 10^3/uL (0.0-0.2); BASO % 0.8 % (0.0-1.0); EOS # 0.4 10^3/uL (0.0-0.5); HEMATOCRIT 41.6 % (36.0-47.0); HEMOGLOBIN 13.2 g/dl (12.0-15.5); LYMPH # 3.5 10^3/uL (1.5-5.0); MEAN CORPUSCULAR HEMOGLOBIN 27.4 pg (27.0-33.0); MEAN CORPUSCULAR HGB CONC 31.7 g/dl (32.0-36.5); MEAN CORPUSCULAR VOLUME 86.5 fl (80.0-96.0); MONO # 0.8 10^3/uL (0.0-0.8); MONO % 8.9 % (2.0-8.0); NEUTROPHILS # 3.9 10^3/uL (1.5-8.5); NEUTROPHILS % 45.2 % (36.0-66.0); PLATELET COUNT, AUTOMATED 360 10^3/uL (150-450); RED BLOOD COUNT 4.81 10^6/uL (4.00-5.40); WHITE BLOOD COUNT 8.7 10^3/uL (4.0-10.0)
[2022-10-14 09:24] LABS: IRON (FE) 74 UG/DL (50-170)
[2022-10-14 09:25] LABS: PERCENT SATURATION 20.5 % (13.2-45.0); TOTAL IRON BINDING CAPACITY 361 UG/DL (250-425)
[2022-10-14 09:33] LABS: ALBUMIN 4.1 G/DL (3.2-5.2); ALKALINE PHOSPHATASE 114 U/L (46-116); ALT/SGPT 29 U/L (7.0-40); AST/SGOT 17 U/L (<34); BILIRUBIN,TOTAL 0.5 MG/DL (0.3-1.2); BLOOD UREA NITROGEN 22 MG/DL (9-23); CALCIUM LEVEL 9.7 MG/DL (8.3-10.6); CARBON DIOXIDE LEVEL 28 MMOL/L (20-31); CHLORIDE LEVEL 105 MMOL/L (98-107); CHOLESTEROL LEVEL 231 MG/DL (<200); CREATININE FOR GFR 0.83 MG/DL (0.55-1.30); FOLATE > 24.0 NG/ML (>5.4); GLOMERULAR FILTRATION RATE > 60.0 (>45); GLUCOSE, FASTING 93 MG/DL (74-106); HDL CHOLESTEROL 88.7 MG/DL (>40); LDL CHOLESTEROL 119.7 MG/DL (<100); MAGNESIUM LEVEL 2.2 MG/DL (1.8-2.4); NON-HDL-C 142.3 MG/DL; POTASSIUM SERUM 4.3 MMOL/L (3.5-5.1); SODIUM LEVEL 137 MMOL/L (136-145); TOTAL 25(OH) VITAMIN D 57.6 NG/ML (20.0-100.0); TOTAL PROTEIN 7.9 G/DL (5.7-8.2); TRIGLYCERIDES LEVEL 113 MG/DL (<150); VITAMIN B12 LEVEL 1658 PG/ML (211-911)
== END ==
LOC: M LAB 08:31
PROVIDERS: ATTEND Family Medicine
DX: Z98.84 Bariatric surgery status (principal)

== ENCOUNTER → 2023-02-27 | Outpatient (CLI) | payer OTHER ==
[2023-02-27 14:25] LABS: BASO # 0.1 10^3/uL (0.0-0.2); BASO % 0.4 % (0.0-1.0); EOS # 0.5 10^3/uL (0.0-0.5); EOS % 4.1 % (0.0-3.0); HEMATOCRIT 40.2 % (36.0-47.0); LYMPH # 4.9 10^3/uL (1.5-5.0); LYMPH % 38.7 % (24.0-44.0); MEAN CORPUSCULAR HGB CONC 32.3 g/dl (32.0-36.5); MEAN CORPUSCULAR VOLUME 86.5 fl (80.0-96.0); MONO # 0.9 10^3/uL (0.0-0.8); MONO % 7.2 % (2.0-8.0); NEUTROPHILS # 6.2 10^3/uL (1.5-8.5); NEUTROPHILS % 49.4 % (36.0-66.0); PLATELET COUNT, AUTOMATED 342 10^3/uL (150-450); RED BLOOD COUNT 4.65 10^6/uL (4.00-5.40); WHITE BLOOD COUNT 12.6 10^3/uL (4.0-10.0)
[2023-02-27 14:56] LABS: ALBUMIN 3.9 G/DL (3.2-5.2); ALKALINE PHOSPHATASE 103 U/L (46-116); ALT/SGPT 18 U/L (7.0-40); AST/SGOT 20 U/L (<34); BILIRUBIN,TOTAL 0.2 MG/DL (0.3-1.2); BLOOD UREA NITROGEN 22 MG/DL (9-23); CALCIUM LEVEL 10.1 MG/DL (8.3-10.6); CARBON DIOXIDE LEVEL 24 MMOL/L (20-31); CHLORIDE LEVEL 110 MMOL/L (98-107); CREATININE FOR GFR 0.79 MG/DL (0.55-1.30); GLOMERULAR FILTRATION RATE > 60.0 (>45); GLUCOSE, FASTING 92 MG/DL (74-106); POTASSIUM SERUM 4.2 MMOL/L (3.5-5.1); SODIUM LEVEL 140 MMOL/L (136-145); TOTAL PROTEIN 7.2 G/DL (5.7-8.2)
== END ==
LOC: M RAD 13:52
PROVIDERS: ATTEND Family Medicine
DX: R05.9 Cough, unspecified (principal)

== ENCOUNTER → 2023-03-05 | Outpatient (REF) | payer OTHER | LOC: M SFHCWAGY 12:59 | PROVIDERS: ATTEND Nurse Practitioner Family | DX: Z12.4 Encounter for screening for malignant neoplasm of cervix (principal) | CPT/HCPCS: 87624; G0123 ==

== ENCOUNTER → 2023-04-28 | Outpatient (CLI) | payer OTHER | LOC: M WHC 09:02 | PROVIDERS: ATTEND Nurse Practitioner Family | DX: N95.0 Postmenopausal bleeding (principal); D25.1 Intramural leiomyoma of uterus; N88.8 Other specified noninflammatory disorders of cervix uteri ==

== ENCOUNTER → 2023-10-14 | Outpatient (CLI) | payer OTHER ==
[~2023-10-14] MED LIST changes: +ONDA-282; -ONDA4TAB6
== END ==
LOC: M PLAIMG 15:52
PROVIDERS: ATTEND Family Medicine
DX: M54.32 Sciatica, left side (principal); R93.7 Abnormal findings on diagnostic imaging of other parts of musculoskeletal system

== ENCOUNTER → 2024-07-08 | Outpatient (CLI) | payer OTHER ==
[~2024-07-08] MED LIST changes: -CYCL5TAB PO; +CYCL5TAB4 PO
[2024-07-08 10:14] LABS: ALBUMIN 4.1 G/DL (3.2-5.2); ALKALINE PHOSPHATASE 89 U/L (35-104); ALT/SGPT 19 U/L (7.0-40); AST/SGOT 17 U/L (<34); BILIRUBIN,TOTAL 0.3 MG/DL (0.3-1.2); BLOOD UREA NITROGEN 18 MG/DL (9-23); CALCIUM LEVEL 9.3 MG/DL (8.3-10.6); CARBON DIOXIDE LEVEL 26 MMOL/L (20-31); CHLORIDE LEVEL 107 MMOL/L (98-107); CHOLESTEROL LEVEL 186 MG/DL (<200); CHOLESTEROL RISK RATIO 2.48 (<5); CREATININE FOR GFR 0.79 MG/DL (0.55-1.30); GLUCOSE, FASTING 84 MG/DL (74-106); HDL CHOLESTEROL 74.8 MG/DL (>40); LDL CHOLESTEROL 88.8 MG/DL (<100); MAGNESIUM LEVEL 2.1 MG/DL (1.8-2.4); NON-HDL-C 111.2 MG/DL; POTASSIUM SERUM 4.9 MMOL/L (3.5-5.1); SODIUM LEVEL 142 MMOL/L (136-145); TOTAL IRON BINDING CAPACITY 277 UG/DL (250-425); TOTAL PROTEIN 7.2 G/DL (5.7-8.2); TRIGLYCERIDES LEVEL 112 MG/DL (<150)
[2024-07-08 10:15] LABS: IRON (FE) 76 UG/DL (50-170); PERCENT SATURATION 27.4 % (13.2-45.0); VITAMIN B12 LEVEL 870 PG/ML (211-911)
[2024-07-08 10:16] LABS: FERRITIN 85.6 NG/ML (7.3-270.7); TOTAL 25(OH) VITAMIN D 66.2 NG/ML (20.0-100.0)
[2024-07-08 10:18] LABS: FOLATE > 24.0 NG/ML (>5.4)
[2024-07-08 10:20] LABS: BASO # 0.1 10^3/uL (0.0-0.2); BASO % 0.8 % (0.0-1.0); EOS # 0.4 10^3/uL (0.0-0.5); EOS % 4.1 % (0.0-3.0); HEMOGLOBIN 13.4 g/dl (12.0-15.5); LYMPH # 3.6 10^3/uL (1.5-5.0); LYMPH % 40.2 % (24.0-44.0); MEAN CORPUSCULAR HEMOGLOBIN 27.6 pg (27.0-33.0); MEAN CORPUSCULAR HGB CONC 31.2 g/dl (32.0-36.5); MEAN CORPUSCULAR VOLUME 88.7 fl (80.0-96.0); MONO # 0.7 10^3/uL (0.0-0.8); MONO % 7.5 % (2.0-8.0); NEUTROPHILS # 4.3 10^3/uL (1.5-8.5); NEUTROPHILS % 47.2 % (36.0-66.0); PLATELET COUNT, AUTOMATED 372 10^3/uL (150-450); RED BLOOD COUNT 4.85 10^6/uL (4.00-5.40)
== END ==
LOC: M PLALAB 07:30
PROVIDERS: ATTEND Family Medicine
DX: E04.1 Nontoxic single thyroid nodule (principal); I10 Essential (primary) hypertension; Z98.84 Bariatric surgery status

== ENCOUNTER 2024-11-01 07:32 | Day surgery (SDC) | payer OTHER ==
[~2024-11-01] VITALS: Ht 154.9 cm; Wt 84.7 kg
[~2024-11-01 07:32] MED LIST changes: +TIRZ10PE SC
[2024-11-01] MEDS ORDERED: LIDOCAINE 2% 100 MG/5 ML SDV (FOR ANES.) As Ordered ONE (08:01)
[2024-11-01] MEDS ORDERED: GLYCOPYRROLATE INJ 0.2 MG/ML 2 ML VIAL As Ordered ONE (08:59)
[2024-11-01 09:24] VITALS: TEMP 97.2
[2024-11-01 09:49] VITALS: BP 153/73; O2SAT 98
== END 2024-11-01 09:52 | disposition home or self-care (01) ==
LOC: M OPP 07:32
PROVIDERS: ATTEND Internal Medicine Gastroenterology
DX: Z12.11 Encounter for screening for malignant neoplasm of colon (principal); K64.0 First degree hemorrhoids; K57.30 Diverticulosis of large intestine without perforation or abscess without bleeding; K22.70 Barrett's esophagus without dysplasia; K22.89 Other specified disease of esophagus; K44.9 Diaphragmatic hernia without obstruction or gangrene; Z98.84 Bariatric surgery status; R12 Heartburn; Z91.013 Allergy to seafood; Z79.85 Long-term (current) use of injectable non-insulin antidiabetic drugs; Z79.899 Other long term (current) drug therapy; Z87.891 Personal history of nicotine dependence
CPT/HCPCS: 43239; 45378; 88305; J1596

== ENCOUNTER → 2024-11-19 | Outpatient (CLI) | payer OTHER | LOC: M WHC 11:18 | PROVIDERS: ATTEND Family Medicine | DX: E04.2 Nontoxic multinodular goiter (principal) ==